=== PATIENT | male | born 1980 | race Caucasian/White ===

== ENCOUNTER 2017-03-16 11:17 | Emergency (ER) | payer MEDICAID ==
[~2017-03-16] VITALS: Ht 182.9 cm; Wt 97.5 kg
[2017-03-16 11:23] VITALS: BP_SYST 149
[2017-03-16] MEDS ORDERED: IBUPROFEN 800 MG TABLET PO ONE (11:45)
[2017-03-16] MEDS ORDERED: methylPREDNISolone SOD SUCC/PF 62.5 MG/ML VIAL IM ONE (11:45)
[2017-03-16 12:17] VITALS: BP_SYST 141
== END 2017-03-16 12:17 | disposition home or self-care (01) ==
LOC: SED 11:17
DX: M54.42 Lumbago with sciatica, left side (principal); G89.29 Other chronic pain
CPT/HCPCS: 96372; 99283; J2930

== ENCOUNTER 2019-04-28 14:20 | Emergency (ER) | payer MEDICAID ==
[~2019-04-28] VITALS: Ht 182.9 cm; Wt 104.3 kg
[2019-04-28 14:40] VITALS: BP_SYST 129
--- NOTE | 2019-04-28 16:16 | NUR ---
Patient to ER bed 02 to gown for evaluation. Side rails up. Report given to HANY Dill
--- NOTE | 2019-04-28 16:25 | NUR ---
pt arrives from home. Stated that he tried to self detox from Xanax. Fine tremors observed over BUE. Pt reported that he has been taking 2mg bars. This am he took 0.25mg of Xanax. patient monitor placed.
--- NOTE | 2019-04-28 16:33 | NUR ---
# 20 gauge angiocath placed to LFA. Use of asceptic technique. Opsite placed over site. Blood return noted. Blood for lab drawn from site. Flushed with 10 cc of normal saline. No evidence of infiltration noted. Patient tolerated well.
--- NOTE | 2019-04-28 16:36 | NUR ---
ER at bedside examining patient.
[2019-04-28] MEDS ORDERED: NACL 0.9% 1,000 ML IV ONE (16:45)
[2019-04-28] MEDS ORDERED: LORazepam 2 MG/ML VIAL IVP ONE (16:45)
[2019-04-28 17:20] VITALS: BP_SYST 130
--- NOTE | 2019-04-28 17:20 | NUR ---
Patient given written and verbal discharge instructions and verbalizes understanding. ER MD discussed with patient the results and treatment provided. Patient in stable condition. ID arm band removed. IV catheter removed intact and dressing applied, no active bleeding. Rx of ATIVAN, given. Patient educated on pain management and to follow up with PMD. Pain Scale 0. Opportunity for questions provided and answered. Medication side effect fact sheet provided.
== END 2019-04-28 17:20 | disposition home or self-care (01) ==
LOC: SED 14:20
DX: F13.239 Sedative, hypnotic or anxiolytic dependence with withdrawal, unspecified (principal)
CPT/HCPCS: 93005; 96374; 99283; J2060; J7030

== ENCOUNTER 2019-10-04 06:28 | Emergency (ER) | payer SELFPAY ==
[~2019-10-04] VITALS: Ht 182.9 cm; Wt 104.3 kg
[2019-10-04 06:50] VITALS: BP_SYST 151
[2019-10-04 07:26] LABS: BASOPHILS % (AUTO) 0.4 % (0.0-2.0); EOSINOPHILS % (AUTO) 0.2 % (0.0-4.0); HEMATOCRIT 48.5 % (36-54); HEMOGLOBIN 15.8 g/dL (14.0-18.0); LYMPHOCYTES % (AUTO) 11.4 % (20.5-51.5); MEAN CORPUSCULAR HEMOGLOBIN 27 pg (27-31); MEAN CORPUSCULAR HGB CONC 33 % (32-36); MEAN CORPUSCULAR VOLUME 83 fL (79.0-98.0); MONOCYTES # (AUTO) 0.5 K/uL (0.0-1.0); PLATELET COUNT (AUTO) 316 K/uL (130-430); RED BLOOD CELL COUNT(AUTO) 5.88 MIL/uL (4.2-6.2); RED CELL DISTRIBUTION WIDTH 16.7 % (9.0-15.0); WHITE BLOOD COUNT (AUTO) 8.5 K/uL (4.8-10.8)
[2019-10-04 07:44] LABS: ANION GAP 7 (5-15); CALCIUM 8.8 mg/dL (8.4-11.0); CHLORIDE 100 mmol/L (98-107); CREATININE 1.44 mg/dL (0.55-1.30); GLUCOSE 100 mg/dL (70-99); POTASSIUM 4.2 mmol/L (3.5-5.1); SODIUM SERUM 136 mmol/L (136-145); UREA NITROGEN, BLOOD 13 mg/dL (8-21)
[2019-10-04 07:52] LABS: ALANINE AMINOTRANSFERASE 37 U/L (12-78); ALBUMIN 3.6 g/dL (3.4-4.8); ASPARTATE AMINOTRANSFERASE 26 U/L (10-37); GFR AFRICAN AMERICAN 70 mL/min (>90); TOTAL BILIRUBIN 0.5 mg/dL (0.0-1.0)
[2019-10-04 08:01] LABS: BILIRUBIN,URINE NEGATIVE (NEGATIVE); BLOOD, URINE NEGATIVE (NEGATIVE); CLARITY/URINE CLEAR (CLEAR); COLOR,URINE ORANGE (YELLOW); GLUCOSE,URINE NEGATIVE (NEGATIVE); KETONES,URINE 1+ (NEGATIVE); LEUKOCYTE ESTERASE ,URINE NEGATIVE (NEGATIVE); NITRITE, URINE NEGATIVE (NEGATIVE); PH,URINE 7.5 (5.0-8.0); PROTEIN URINE NEGATIVE (NEGATIVE); UROBILINOGEN,URINE 0.2 (0.2-1.0)
[2019-10-04 08:22] LABS: CKMB RELATIVE INDEX 0.7 (0.0-2.9); CREATINE KINASE MB 3.4 ng/mL (0-3.6)
[2019-10-04 08:40] VITALS: BP_SYST 149
== END 2019-10-04 08:40 | disposition home or self-care (01) ==
LOC: SED 06:28
DX: F41.9 Anxiety disorder, unspecified (principal); F19.20 Other psychoactive substance dependence, uncomplicated
CPT/HCPCS: 36415; 80053; 81003; 82550-TC; 82553-TC; 84484; 85025; 93005; 99285

== ENCOUNTER 2020-01-19 13:59 | Emergency (ER) | payer SELFPAY ==
[~2020-01-19] VITALS: Ht 182.9 cm; Wt 104.3 kg
[2020-01-19 14:56] VITALS: BP_SYST 140
--- NOTE | 2020-01-19 15:00 | NUR ---
Pt walked in to ER with c/o anxiety, insomnia and heart palpitations. Reports taking a supplement on Wednesday and having issues since. V/S stable, pt is afebrile. Placed in waiting room, no distress noted.
--- NOTE | 2020-01-19 15:30 | NUR ---
EKG performed at BS by EMT. Physician given copy of EKG for review.
--- NOTE | 2020-01-19 15:55 | NUR ---
ER Dr. Manzo at bedside examining patient.
--- NOTE | 2020-01-19 16:20 | NUR ---
Patient given written and verbal discharge instructions and verbalizes understanding. ER MD discussed with patient the results and treatment provided. Patient in stable condition. ID arm band removed. Rx of Librium given. Patient educated on pain management and to follow up with PMD. Pain Scale 0. Opportunity for questions provided and answered. Medication side effect fact sheet provided.
[2020-01-19 16:24] VITALS: BP_SYST 140
== END 2020-01-19 16:20 | disposition home or self-care (01) ==
LOC: SED 13:59
DX: R00.2 Palpitations (principal); F41.9 Anxiety disorder, unspecified
CPT/HCPCS: 93005; 99283

== ENCOUNTER 2020-02-06 07:24 | Emergency (ER) | payer SELFPAY ==
[~2020-02-06] VITALS: Ht 182.9 cm; Wt 104.3 kg
[2020-02-06 07:32] VITALS: BP_SYST 199
[2020-02-06 08:15] VITALS: BP_SYST 167
== END 2020-02-06 08:15 | disposition home or self-care (01) ==
LOC: SED 07:24
DX: F41.9 Anxiety disorder, unspecified (principal); F11.23 Opioid dependence with withdrawal; I10 Essential (primary) hypertension; Y92.89 Other specified places as the place of occurrence of the external cause
CPT/HCPCS: 99283